=== PATIENT | female | born 1990 | race Caucasian/White ===

== ENCOUNTER 2021-07-03 03:39 | Emergency (ER) | payer OTHER ==
[~2021-07-03] VITALS: Ht 160 cm; Wt 89.5 kg
--- NOTE | 2021-07-03 03:46 | PHYS DOC ---
General Adult HPI: HPI: ".. My contractions started at about 3.. I left a message at my OB.... Dr. Ragland at ....[facility]... but they did not call back... My water has not broken yet... " Patient is a 31 year old female who presents with complaints of contractions. Patient is estimated 39 weeks gravid and plans to delivery at [facility]. Pt. water has not broken yet. Pt. G4, T3. Follow s with Dr. Ragland at [facility]. Pt. states she is blood type O positive. Pt. having contract +/` - every 4 min. aprox . 15 seconds. Onset of contractions started this morning at 0300. Pt. states at one point seemed like see was having 4 short contractions in a min. or two. Pt. denies any trauma. No recent travel. Has had COVID vaccinations. No specific ill contacts. Review of Systems: Review of Systems: Constitutional: Denies fever or chills Eyes: Denies change in visual acuity HENT: Denies nasal congestion or sore throat Respiratory: Denies cough or shortness of breath Cardiovascular: Denies chest pain or edema GI: Denies abdominal pain, nausea, vomiting, bloody stools or diarrhea : Denies dysuria Musculoskeletal: Denies back pain or joint pain Integument: Denies rash Neurologic: Denies headache, focal weakness or sensory changes Endocrine: Denies polyuria or polydipsia Lymphatic: Denies swollen glands Psychiatric: Denies depression or anxiety Family History: Family History: Noncontributory Current Medications: Current Meds: See nursing for home meds Allergies: Allergies: No known drug allergies Physical Exam: PE: Constitutional: Moderate acute distress, non-toxic appearance. [] HENT: Normocephalic, atraumatic, bilateral external ears normal, oropharynx moist, no oral exudates, nose normal. [] Eyes: PERRLA, EOMI, conjunctiva normal, no discharge. [] Neck: Normal range of motion, no tenderness, supple, no stridor. [] Cardiovascular:Heart rate regular rhythm, no murmur [] Lungs & Thorax: Bilateral breath sounds equal apex auscultation [] Abdomen: Bowel sounds normal, soft, no tenderness, no masses, no pulsatile masses. Gravid heart rate 150. Effaced to less than 1 cm. Dilated 1 cm. Water has not broken as yet. Skin: Warm, dry, no erythema, no rash. [] Back: No tenderness, no CVA tenderness. [] Extremities: No tenderness, no cyanosis, no clubbing, ROM intact, trace ankle edema. [] No cording appreciated Neurologic: Alert and oriented X 3, normal motor function, normal sensory fun ction, no focal deficits noted. DTRs +2 brachial and patella. Psychologic: Affect anxious, judgement normal, mood normal. [] EKG: EKG: [] Radiology/Procedures: Radiology/Procedures: [] Heart Score: C/O Chest Pain: N/A Risk Factors: Risk Factors: DM, Current or recent (<one month) smoker, HTN, HLP, family history of CAD, obesity. Risk Scores: Score 0 - 3: 2.5% MACE over next 6 weeks - Discharge Home Score 4 - 6: 20.3% MACE over next 6 weeks - Admit for Clinical Observation Score 7 - 10: 72.7% MACE over next 6 weeks - Early Invasive Strategies Course & Med Decision Making: Course & Med Decision Making Pertinent Labs and Imaging studies reviewed. (See chart for details) Discussed with Dr. Abbott on-call at [facility]-advised he is not on for Dr. Ragland. Advised to call Dr. Ragland on-call. Discussed presentation, testing and tx plan with Dr. More- pilot control operator helper for Dr. Ragland. Advised to transfer to [facility] - she will accept pt in transfer. 0400 hrs. Impression: 1.G4 , T3 2. Est. 39 weeks 3. Leukocytosis 15.9 4. History of anemia hemoglobin currently 10.2 5. Thrombocytosis 523 6. Elevated alk phos 197 7. Beta-hCG is 9480 [] Dragon Disclaimer: Dragon Disclaimer: This electronic medical record was generated, in whole or in part, using a voice recognition dictation system. Departure Departure: Referrals: NON,STAFF (PCP) Dragon Disclaimer This chart was dictated in whole or in part using Voice Recognition software in a busy, high-work load, and often noisy Emergency Department environment. It may contain unintended and wholly unrecognized errors or omissions. LURDES BUSTAMANTE MD Jul 03, 2021 03:46
[2021-07-03] MEDS ORDERED: IV RINGERS SOLUTION,LACTATED 1,000 ML IV SCH (04:00)
[2021-07-03 04:11] LABS: BASO # 0.1 x10^3/uL (0.0-0.2); BASO % 1 % (0-3); EOS # 0.1 x10^3/uL (0.0-0.7); EOS % 1 % (0-3); HEMATOCRIT 32.4 % (36.0-47.0); HEMOGLOBIN 10.7 g/dL (12.0-15.5); LYMPH % 25 % (24-48); MEAN CORPUSCULAR HEMOGLOBIN 28 pg (25-35); MEAN CORPUSCULAR HGB CONC 33 g/dL (31-37); MEAN CORPUSCULAR VOLUME 85 fL (79-100); MONO # 0.9 x10^3/uL (0.0-1.1); MONO % 6 % (0-9); NEUT # 10.7 x10^3uL (1.8-7.7); NEUT % 67 % (31-73); PLATELET COUNT 523 x10^3/uL (140-400); RED BLOOD COUNT 3.83 x10^6/uL (3.50-5.40); RED CELL DISTRIBUTION WIDTH 16.4 % (11.5-14.5); WHITE BLOOD COUNT 15.9 x10^3/uL (4.0-11.0)
[2021-07-03 04:17] VITALS: BP 11/68
[2021-07-03 04:32] LABS: ANION GAP 8 (6-14); BLOOD UREA NITROGEN 13 mg/dL (7-20); CALCIUM 8.4 mg/dL (8.5-10.1); CARBON DIOXIDE 22 mmol/L (21-32); CHLORIDE 104 mmol/L (98-107); CREATININE 0.5 mg/dL (0.6-1.0); GFR 145.9; GLUCOSE 77 mg/dL (70-99); POTASSIUM 4.3 mmol/L (3.5-5.1); SODIUM 134 mmol/L (136-145)
[2021-07-03 04:37] LABS: ALBUMIN 2.7 g/dL (3.4-5.0); ALK PHOS 197 U/L (46-116); ALT (SGPT) 24 U/L (14-59); AST (SGOT) 25 U/L (15-37); TOTAL BILIRUBIN 0.2 mg/dL (0.2-1.0); TOTAL PROTEIN 6.3 g/dL (6.4-8.2)
[2021-07-03 04:41] LABS: DIRECT BILIRUBIN < 0.1 mg/dL (0.0-0.2)
[2021-07-03 04:45] LABS: INFLUENZA A PATIENT NEGATIVE (NEGATIVE); INFLUENZA B PATIENT NEGATIVE (NEGATIVE)
[2021-07-03 04:54] LABS: % LYMPHS 33 % (24-48); % MONOS 5 % (0-10); % SEGS 62 % (35-66); ANISOCYTOSIS SLIGHT; PLATELET CLUMP PRESENT; PLT ESTIMATE ADEQUATE (ADEQUATE)
== END 2021-07-03 04:10 | disposition short-term general hospital (02) ==
LOC: ER 03:39
DX: O99.113 Other diseases of the blood and blood-forming organs and certain disorders involving the immune mechanism complicating pregnancy, third trimester (principal); D72.829 Elevated white blood cell count, unspecified; D75.839 Thrombocytosis, unspecified; R79.89 Other specified abnormal findings of blood chemistry; Z20.822 Contact with and (suspected) exposure to COVID-19; Z86.2 Personal history of diseases of the blood and blood-forming organs and certain disorders involving the immune mechanism; Z3A.39 39 weeks gestation of pregnancy
CPT/HCPCS: 80048; 80076; 84702; 85007; 85025; 87428; 96360; 99285; J7120; 99283